=== PATIENT | female | born 1975 | race African-American/Black ===

== ENCOUNTER 2024-01-04 18:10 | Emergency (ER) | payer SELFPAY ==
[~2024-01-04] VITALS: Ht 167.6 cm; Wt 105.0 kg
[2024-01-04 18:18] VITALS: O2SAT 98
[2024-01-04 18:30] VITALS: BP 142/85; PULSE 79; RESP 16; TEMP 98.9
[2024-01-04] MEDS: ACETAMINOPHEN 325MG TABLET PO ONE (18:30)
[2024-01-04] MEDS: KETOROLAC 30MG/ML VIAL IM ONE (18:30)
[2024-01-04] MEDS ORDERED: IBUP-2029 MT (20:48)
[2024-01-04] MEDS ORDERED: TOPUD PO (20:48)
[2024-01-04] MEDS ORDERED: LIDO700A30 TP (20:48)
== END 2024-01-04 21:23 | disposition home or self-care (01) ==
LOC: ER 18:10
DX: S20.211A Contusion of right front wall of thorax, initial encounter (principal); S80.02XA Contusion of left knee, initial encounter; V43.92XA Unspecified car occupant injured in collision with other type car in traffic accident, initial encounter; W22.19XA Striking against or struck by other automobile airbag, initial encounter; Y93.89 Activity, other specified; Y92.89 Other specified places as the place of occurrence of the external cause; Y99.8 Other external cause status
CPT/HCPCS: 99284; 71046; 73560; 96372; J1885